=== PATIENT | male | born 1980 | race Hispanic/Latino ===

== ENCOUNTER 2018-03-16 23:42 | Emergency (ER) | payer OTHER ==
[2018-03-16 23:52] VITALS: BP 117/59; PULSE 81; RESP 16; TEMP 98.2; O2SAT 100
[2018-03-17] MEDS ORDERED: Povidone Iodine Topical 10% Sol ONE (00:24)
[2018-03-17] MEDS ORDERED: Tdap Vaccine 0.5 ml Vial (10-64 yrs) IM ONE ×2 (00:28→00:43)
--- NOTE | 2018-03-17 00:31 | ED PDOC ---
Upper Extremity Pain/Injury Time Seen by Provider: 03/17/18 00:13 Chief Complaint (Nursing): Finger,Hand,&Wrist Chief Complaint (Provider): left hand middle finger injury History Per: Patient History/Exam Limitations: no limitations Onset/Duration Of Symptoms: Hrs (2) Additional Complaint(s): 37 y/o male presents with injury to left hand 3rd digit sustained 2 hours prior to arrival. Patient states he got locked out of his back door and used two bricks to try and pry the door open and they slipped during an attempt and his middle finger got caught in the middle of the two. Denies numbness/weakness left upper extremity, limitation of movement. Last Tetanus unknown. Past Medical History Reviewed: Historical Data, Nursing Documentation, Vital Signs Vital Signs: Last Vital Signs Temp 98.2 F 03/16/18 23:50 Pulse 81 03/16/18 23:50 Resp 16 03/16/18 23:50 BP 117/59 L 03/16/18 23:50 Pulse Ox 100 03/16/18 23:50 - Medical History PMH: No Chronic Diseases - Surgical History Surgical History: Tonsillectomy - Family History Family History: States: No Known Family Hx - Allergies Allergies/Adverse Reactions: Allergies Allergy/AdvReac Type Severity Reaction Status Date / Time No Known Allergies Allergy Verified 03/16/18 23:49 Review of Systems ROS Statement: Except As Marked, All Systems Reviewed And Found Negative Musculoskeletal: Positive for: Hand Pain (left hand 3rd digit) Physical Exam - Reviewed Nursing Documentation Reviewed: Yes Vital Signs Reviewed: Yes - Physical Exam Appears: Positive for: Well, Non-toxic, No Acute Distress Pulses-Radial (L): 2+ Pulses-Radial (R): 2+ Extremity: Positive for: Normal ROM, Other (Nail of left hand 3rd digit split in to two pieces, oozing blood noted from exposed area. Erythema/swelling noted to distal palmar aspect left hand 3rd digit. FROM. Distal NV, motor intact. ) - ECG O2 Sat by Pulse Oximetry: 100 - Other Rad left hand 3rd digit xray X-Ray: Viewed By Tn X-Ray Interpretation: no acute findings - Progress ED Course And Treament: Adacel IM, xray left hand 3rd digit soaked in sterile water/betadine solution Patient educated on findings, and need for nail removal in order to fully assess nail bed for acute injury/laceration and repair of laceration if present. Patient states he does not wish to have this procedure done at this time, and would like to try less invasive treatment. Patient educated on possibility of chronic nail bed deformity/abnormality with ED attending Dr. Abraham at bedside if nail bed laceration present and not addressed properly Patient demonstrates full understanding and states he will follow up with a hand surgeon tomorrow. Gel foam applied to nail, telfa/pressure dressing applied. Patient given information for hand specialist on-call to follow up with. Return precautions given. Disposition - Clinical Impression Clinical Impression: Crush injury to finger - Patient ED Disposition Is Patient to be Admitted: No Counseled Patient/Family Regarding: Studies Performed, Diagnosis, Need For Followup - Disposition Referrals: Bhargav Patterson MD [Staff Provider] - Disposition: Routine/Home Disposition Time: 02:00 Condition: STABLE Additional Instructions: Follow up with hand specialist in 1-2 days. Return to ED for worsening/concerning symptoms. Instructions: Crush Injury Forms: [facility] ([place])
[2018-03-17] MEDS ORDERED: Lidocaine 1% Inj (20ml) IJ STA (01:09)
[2018-03-17] MEDS ORDERED: Lidocaine 1% 20 MG/2 ML PF AMP ONE (01:46)
[2018-03-17] MEDS ORDERED: Lidocaine 2% Inj (20ml) ONE (01:51)
[2018-03-17] MEDS ORDERED: Absorbable Gelatin Sponge Size 12-7 ONE (01:56)
--- NOTE | 2018-03-17 09:58 | RAD ---
PROCEDURE: Left middle finger radiographs. HISTORY: crush injury, nail injury COMPARISON: None. TECHNIQUE: AP radiograph of the left hand, as well as spot oblique and lateral images of left middle finger were obtained. FINDINGS: LEFT MIDDLE FINGER: No evidence of acute displaced fracture nor dislocation. There does appear to be disruption of the base of the nail 3rd finger JOINTS: Joint spaces preserved. No significant osteoarthritis SOFT TISSUES: Normal. OTHER FINDINGS: None. IMPRESSION: No evidence of acute displaced fracture nor dislocation. There is disruption at the level of the base of the nail 3rd finger.
== END 2018-03-17 02:18 | disposition home or self-care (01) ==
LOC: H.ER 23:42
DX: S67.193A Crushing injury of left middle finger, initial encounter (principal); W23.0XXA Caught, crushed, jammed, or pinched between moving objects, initial encounter; Z23 Encounter for immunization